=== PATIENT | male | born 1960 | race Caucasian/White ===

== ENCOUNTER 2021-02-17 18:52 | Observation (INO) ==
[2021-02-17 19:13] LABS: Basophils # 0.1 10*3/uL (0.0-0.2); Basophils % 1.1 % (0.0-0.8); Eosinophils # 0.2 10*3/uL (0.0-0.87); Eosinophils % 2.1 % (0.00-10.9); Hematocrit 41.3 VOL% (42.0-52.0); Hemoglobin 14.2 GM/DL (14.0-18.0); Immature Granulocytes % 0.1 %; Immature Granulocytes Absolute 0.01 #; Lymphocytes # 1.8 10*3/uL (1.4-4.0); Lymphocytes % 21.5 % (21.2-54.2); Mean Corpuscular HGB Conc 34.4 GM/DL (32-36); Mean Corpuscular Volume 88.2 FL (87-102); Mean Platelet Volume 8.8 FL (9.6-12.0); Monocytes % 7.8 % (1.7-12.7); Neutrophils % 67.4 % (38.7-73.9); Platelet Count 237 T/CUMM (130-400); Red Blood Count 4.68 MC/CUMM (3.8-5.5); Red Cell Distribution Width 11.6 % (9.3-17.3); White Blood Count 8.2 T/CUMM (4-12)
[2021-02-17 19:33] LABS: Albumin 3.9 G/DL (3.4-5.0); Calcium 8.6 MG/DL (8.5-10.1); Osmolality,Calculated 265.4 MOS/KG (273-304); Potassium 3.7 MMOL/L (3.5-5.1); Total Protein 6.7 G/DL (6.4-8.2)
[2021-02-17 19:50] LABS: Bilirubin,Urine Negative (Negative); Blood, Urine Negative (Negative); Glucose,Urine (UA) Negative (Negative); Ketones,Urine 5 mg/dL (Negative); Mucus,Urine Occasional /LPF (Occasional); Nitrite,Urine Negative (Negative); Protein,Urine Negative; RBC,Urine 3 /HPF (0-4); Urine Appearance CLEAR (Clear); Urine Color Yellow (Yellow); Urine Specific Gravity 1.008 (1.001-1.035); Urine Urobilinogen < 2.0 EU/DL (0.2-1.0)
[2021-02-17] MEDS ORDERED: SODIUM CHLORIDE 0.9% 500 ML IV STA (22:32)
[2021-02-17] MEDS ORDERED: hydrALAZINE 20 MG/1 ML VIAL IV STA (22:40)
[2021-02-17] MEDS ORDERED: hydrALAZINE 20 MG/1 ML VIAL ONE (22:41)
[2021-02-17] MEDS ORDERED: ONDANSETRON 4 MG/2 ML VIAL IV STA (23:38)
[2021-02-17] MEDS ORDERED: HYDROmorphone 2 MG/1 ML VIAL IV ONE (23:38)
[2021-02-17] MEDS ORDERED: ALUM/MAG/SIMETH/LIDO VISC 1:1 30 ML BOTTLE PO STA (23:46)
[2021-02-17] MEDS ORDERED: SIMETHICONE CHEW 80 MG TABLET PO ONE (23:48)
[2021-02-17] MEDS ORDERED: SIMETHICONE CHEW 80 MG TABLET PO STA (23:54)
[2021-02-18] MEDS ORDERED: PIPERACILLIN/TAZOBACTAM 3,375 MG in SODIUM CHLORIDE 0.9% 100 ML IV STA (00:26)
[2021-02-18] MEDS ORDERED: ONDANSETRON 4 MG/2 ML VIAL IV STA (00:45)
[2021-02-18] MEDS ORDERED: HYDROmorphone 2 MG/1 ML VIAL IV STA (00:45)
[2021-02-18 01:03] LABS: PT Patient Result 10.8 SECS (10.5-12.0)
[2021-02-18] MEDS ORDERED: HYDROmorphone 2 MG/1 ML VIAL IV PRN (02:10)
[2021-02-18] MEDS ORDERED: ONDANSETRON 4 MG/2 ML VIAL IV PRN (02:10)
[2021-02-18] MEDS ORDERED: ACETAMINOPHEN 325 MG TABLET PO PRN (02:10)
[2021-02-18] MEDS: SODIUM CHLORIDE 0.9% 1,000 ML IV SCH ×3 (02:29→15:43)
[2021-02-18 05:44] LABS: Basophils # 0.1 10*3/uL (0.0-0.2); Basophils % 1.1 % (0.0-0.8); Eosinophils # 0.2 10*3/uL (0.0-0.87); Eosinophils % 3.7 % (0.00-10.9); Hematocrit 39.8 VOL% (42.0-52.0); Hemoglobin 13.4 GM/DL (14.0-18.0); Immature Granulocytes % 0.2 %; Immature Granulocytes Absolute 0.01 #; Lymphocytes # 2.3 10*3/uL (1.4-4.0); Lymphocytes % 36.7 % (21.2-54.2); Mean Corpuscular HGB Conc 33.7 GM/DL (32-36); Mean Corpuscular Volume 90.9 FL (87-102); Mean Platelet Volume 9.4 FL (9.6-12.0); Monocytes % 10.9 % (1.7-12.7); Neutrophils % 47.4 % (38.7-73.9); Platelet Count 234 T/CUMM (130-400); Red Blood Count 4.38 MC/CUMM (3.8-5.5); Red Cell Distribution Width 11.8 % (9.3-17.3); White Blood Count 6.2 T/CUMM (4-12)
[2021-02-18 06:22] LABS: Albumin 3.5 G/DL (3.4-5.0); Calcium 8.9 MG/DL (8.5-10.1); Osmolality,Calculated 271.7 MOS/KG (273-304); Potassium 4.3 MMOL/L (3.5-5.1); Total Protein 6.3 G/DL (6.4-8.2)
[2021-02-18] MEDS ORDERED: BUPIVACAINE MPF 0.25% 30 ML VIAL ONE (06:26)
[2021-02-18] MEDS ORDERED: TISSUE ADHESIVE 1 EACH APPLICATOR TOP ONE (06:26)
[2021-02-18] MEDS ORDERED: LIDOCAINE 1%/EPI INJ 20 ML VIAL ONE (06:27)
[2021-02-18] MEDS ORDERED: ROCURONIUM 50 MG/5 ML VIAL IV ONE (06:30)
[2021-02-18] MEDS ORDERED: fentaNYL 100 MCG/2 ML VIAL ONE (06:30)
[2021-02-18] MEDS ORDERED: MIDAZOLAM 2 MG/2 ML VIAL ONE (06:30)
[2021-02-18] MEDS ORDERED: LIDOCAINE 2% 5 ML VIAL ONE (06:30)
[2021-02-18] MEDS ORDERED: propofoL 200 MG/20 ML VIAL IV ONE (06:30)
[2021-02-18] MEDS ORDERED: DEXAMETHASONE 4 MG/1 ML VIAL ONE ×2 (06:30→07:34)
[2021-02-18] MEDS ORDERED: SEVOFLURANE 1 UNIT/15 MINUTE INH ONE ×4 (06:30→08:36)
[2021-02-18] MEDS ORDERED: ONDANSETRON 4 MG/2 ML VIAL ONE (06:30)
[2021-02-18] MEDS ORDERED: PIPERACILLIN/TAZOBACTAM 3,375 MG VIAL IV ONE (07:12)
[2021-02-18] MEDS ORDERED: ePHEDrine 50 MG/ML VIAL ONE (07:33)
[2021-02-18] MEDS ORDERED: ACETAMINOPHEN INJ 1,000 MG/100 ML VIAL IV ONE (07:34)
[2021-02-18] MEDS ORDERED: KETOROLAC 30 MG/1 ML VIAL ONE (07:34)
[2021-02-18] MEDS ORDERED: SUCCINYLCHOLINE 200 MG/10 ML VIAL ONE (07:35)
[2021-02-18] MEDS ORDERED: PHENYLEPHRINE 1 MG/10 ML SYRINGE IV ONE ×2 (07:48→07:59)
[2021-02-18] MEDS ORDERED: GLYCOPYRROLATE 0.4 MG/2 ML VIAL ONE (08:04)
[2021-02-18] MEDS ORDERED: NEOSTIGMINE 10 MG/10 ML VIAL ONE (08:04)
[2021-02-18] MEDS: PIPERACILLIN/TAZOBACTAM 3,375 MG in SODIUM CHLORIDE 0.9% 100 ML IV SCH ×2 (08:29→16:25)
[2021-02-18] MEDS: PANTOPRAZOLE 40 MG VIAL IV SCH (10:31)
[2021-02-18] MEDS ORDERED: ZALEPLON 5 MG CAPSULE PO SCH (21:00)
[2021-02-19] MEDS: PIPERACILLIN/TAZOBACTAM 3,375 MG in SODIUM CHLORIDE 0.9% 100 ML IV SCH ×2 (01:30→09:10)
[2021-02-19] MEDS: SODIUM CHLORIDE 0.9% 1,000 ML IV SCH ×2 (01:31→03:29)
[2021-02-19] MEDS: PANTOPRAZOLE 40 MG VIAL IV SCH (09:10)
[2021-02-19 09:52] VITALS: BP 144/79
== END 2021-02-19 10:12 | disposition home or self-care (01) ==
LOC: N.EDINP 18:52 → N.ED 18:52 → N.EDINP 02-18 01:52 → N.4E 02-18 02:01
PROVIDERS: ADMIT Surgery; ATTEND Surgery